=== PATIENT | female | born 1940 | race Caucasian/White ===

== ENCOUNTER 2018-03-11 00:04 | Inpatient (IN) | payer OTHER ==
[2018-03-11] MEDS ORDERED: NS 1,000 ML IV ONE (00:07)
[2018-03-11] MEDS ORDERED: ONDANSETRON 4 MG/2 ML VIAL IVP ONE (00:07)
--- NOTE | 2018-03-11 00:08 | EDPHY ---
H & P Time Seen by Provider: 03/11/18 00:08 HPI/ROS: HPI CHIEF COMPLAINT: Multiple complaints, vomiting, headache, diarrhea, recent UTI HISTORY OF PRESENT ILLNESS: 78-year-old female she presents emergency room by private vehicle with her they are visiting from [place] they just arrived today. They drove from [place] to [place]. She presents emergency room at 12:30 p.m. At night with nausea, vomiting x2 episodes, additionally global headache that started earlier in the day, not sudden onset, additionally watery diarrhea , additionally recent diagnosis of UTI for which she is taking antibiotic for of which she cannot recall the name of. She decided come the emergency room as she has been feeling ill this evening. She states that her headache is gotten worse she vomited twice at worsening diarrhea with some lower abdominal cramping and feels unwell. She thinks it may be from altitude. However they drove here in just arrived in town this evening. She denies any chest pain. Denies shortness of breath. She does report she feels anxious. Past Medical History: Hypertension Past Surgical History: Hysterectomy, tonsillectomy the multiple orthopedic surgeries Social History: lives in [facility], denies drugs, alcohol, tobacco. 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 Family History: Noncontributory ROS REVIEW OF SYSTEMS: 10 Systems were reviewed and negative with the exception of the elements mentioned in the history of present illness. Exam Constitutional nontoxic but appears uncomfortable, triage nursing summary reviewed, vital signs reviewed, awake/alert. Vital signs noted at triage to be hypertensive. Eyes normal conjunctivae and sclera, EOMI, PERRLA. HENT dry mucous membrane comma, normal inspection, atraumatic, moist mucus membranes, no epistaxis, neck supple/ no meningismus, no raccoon eyes. Respiratory clear to auscultation bilaterally, normal breath sounds, no respiratory distress, no wheezing. Cardiovascular rate normal, regular rhythm, no murmur, no edema, distal pulses normal. Gastrointestinal soft, non-tender, no rebound, no guarding, normal bowel sounds, no distension, no pulsatile mass. Genitourinary no CVA tenderness. Musculoskeletal no midline vertebral tenderness, full range of motion, no calf swelling, no tenderness of extremities, no meningismus, good pulses, neurovascularly intact. Skin pink, warm, & dry, no rash, skin atraumatic. Neurologic awake, alert and oriented x 3, AAOx3, moves all 4 extremities equally, motor intact, sensory intact, CN II-XII intact, normal cerebellar, normal vision, normal speech. Psychiatric normal mood/affect. Heme/Lymph/Immune no lymphadenopathy. Differential Diagnosis: Includes but is not limited to in a particular order dehydration, electrolyte disturbance, acute diarrheal illness, urinary tract infection, intracranial bleed, altitude illness, infection, sepsis, acute coronary syndrome Medical Decision Making: Plan for this patient IV establishment with blood draw , check UA, troponin, EKG, CT scan head without contrast, IV fluid bolus, IV Zofran, IV Dilaudid. Re-evaluate. Re-evaluation: CT scan head without contrast negative for acute bleed called to me by Dr. Chen. 0216: I spoke with the hospitalist service Dr. Clement, who agrees to admit this patient. Main reason for admission is nausea, dehydration, low sodium, generalized weakness, diarrhea and headache. Workup is noted to be low sodium 125. This most likely causing her generalized weakness, nausea, lightheadedness. Plan will be for observation overnight. Her urinalysis still pending. She has been recently treated for UTI. Unknown antibiotic at this time. Source: Patient Constitutional: Initial Vital Signs Temperature (C) 36.7 C 03/11/18 00:09 Heart Rate 85 03/11/18 00:09 Respiratory Rate 16 03/11/18 00:09 O2 Sat (%) 95 03/11/18 00:09 O2 Delivery Mode Nasal Cannula O2 (L/minute) 2 Allergies/Adverse Reactions: hydrocodone Allergy (Verified 03/11/18 05:11) Vomiting naproxen [From Aleve] Allergy (Verified 03/11/18 05:11) Hives aleve Allergy (Uncoded 03/11/18 05:11) Hives Home Medications: Medication Instructions Recorded Losartan/Hydrochlorothiazide 1 each PO DAILY 03/11/18 [Losartan-Hctz 100-12.5 mg Tab] Nitrofurantoin Macrocrystal 100 mg PO BID 03/11/18 [Macrodantin 50 mg (*)] Triamcinolone 0.1% [Triamcinolone 1 nicola TP TID PRN 03/11/18 0.1% Cream (*)] Medical Decision Making - Data Points Laboratory Results: Laboratory Results 03/11/18 00:20 03/11/18 00:20 Medications Given: Acetaminophen (Tylenol) 650 mg PO Q4HRS PRN PRN Reason: Pain, Mild/Fever, Can Take PO Stop: 09/07/18 01:58 Last Admin: 03/11/18 16:13 Dose: 650 mg Enoxaparin Sodium (Lovenox) 40 mg SC DAILY JAJA Stop: 09/07/18 08:59 Last Admin: 03/11/18 15:21 Dose: 40 mg Ceftriaxone Sodium/Dextrose (Rocephin 1 Gm (Premix)) 50 mls @ 100 mls/hr IV DAILY JAJA PRN Reason: Protocol Stop: 04/10/18 14:29 Last Admin: 03/11/18 15:15 Dose: 50 mls Ketorolac Tromethamine (Toradol) 15 mg IVP BID PRN PRN Reason: Pain, Breakthrough Stop: 03/16/18 20:59 Last Admin: 03/11/18 20:02 Dose: 15 mg Ondansetron HCl (Zofran) 4 mg IVP Q4HRS PRN PRN Reason: Nausea/Vomiting, Use 1st Stop: 09/07/18 01:58 Last Admin: 03/11/18 11:34 Dose: 4 mg Discontinued Medications Hydromorphone HCl (Dilaudid) 1 mg IVP EDNOW ONE Stop: 03/11/18 00:19 Last Admin: 03/11/18 00:28 Dose: 1 mg Sodium Chloride (Ns) 1,000 mls @ 0 mls/hr IV EDNOW ONE; Wide Open PRN Reason: Protocol Stop: 03/11/18 00:08 Last Admin: 03/11/18 00:27 Dose: 1,000 mls Sodium Chloride (Ns) 1,000 mls @ 75 mls/hr IV CONT JAJA Stop: 09/07/18 01:59 Last Admin: 03/11/18 03:53 Dose: 1,000 mls Magnesium Sulfate/Dextrose (Magnesium Sulf 1 Gm (Premix)) 100 mls @ 100 mls/hr IV ONCE ONE Stop: 03/11/18 07:20 Last Admin: 03/11/18 07:35 Dose: 100 mls Ondansetron HCl (Zofran) 4 mg IVP EDNOW ONE Stop: 03/11/18 00:08 Last Admin: 03/11/18 00:28 Dose: 4 mg Potassium Chloride (Klor-Con) 20 meq PO ONCE ONE Stop: 03/11/18 15:09 Last Admin: 03/11/18 15:16 Dose: 20 meq Departure - Departure Disposition: [facility] Acute Clinical Impression: Generalized weakness, Lightheaded, Hyponatremia Condition: Fair
[2018-03-11] MEDS ORDERED: HYDROmorphONE/DILAUDID 2 MG/ML INJ IVP ONE (00:18)
[2018-03-11 01:17] LABS: PLATELET COUNT 291 10^3/uL (150-400)
[2018-03-11] MEDS ORDERED: diphenhydrAMINE 25 MG CAP PO PRN (01:59)
[2018-03-11] MEDS ORDERED: LORazepam 0.5 MG TAB PO PRN (01:59)
[2018-03-11] MEDS ORDERED: NS 1,000 ML IV SCH (02:00)
--- NOTE | 2018-03-11 04:42 | PDGENHP ---
History and Physical - Chief Complaint nausea/vomiting/diarrhea - History of Present Illness Source - Patient provides history and appears reliable however she is quite fatigued in provides short abbreviated answers to questions.. EMR reviewed and case discussed with ED provider. HPI - Pleasant 78 yo F with pmhx significant for HTN who presents to the ED with c/o nausea/vomiting/diarrhea x 1 day. Patient and her were driving from [place], [place] for conference when patient began to feel ill yesterday afternoon. Patient denies any hematemesis. She reports watery diarrhea but is unsure if there is any melena or hematochezia present. She has noted some abdominal distention and cramping type pain. Patient has not had any watery diarrhea since arrival to the floor. She reports some chills no fevers. She denies any sick contacts. No recent travel out of the country. In the emergency department, patient's initial SBP not listed under vital signs was reported to be 200 per the ED provider. She reports that she has been having some headaches some dizziness and lightheadedness with positional changes. No further nausea or vomiting since arrival to the floor. Patient was recently started on antibiotics which she cannot recall the name of and has completed 2 days of therapy for diagnosis of UTI. Patient reports she was diagnosed on Tuesday (5 days ago). History Information - Allergies/Home Medication List Allergies/Adverse Reactions: hydrocodone Allergy (Verified 03/11/18 05:11) Vomiting naproxen [From Aleve] Allergy (Verified 03/11/18 05:11) Hives aleve Allergy (Uncoded 03/11/18 05:11) Hives I have personally reviewed and updated: family history, medical history, social history, surgical history Past Medical History: Patient reports that she takes Cozaar at home but cannot recall the dosing at this time. She is also on an antibiotic which she does not recall name or dosing. - Past Medical History Additional medical history: HTN. UTI - Surgical History Additional surgical history: Cataract extraction with lens placement - Family History Additional family history: No cardiac disease - Social History Smoking Status: Never smoked Alcohol Use: None Drug Use: None Additional social history: Patient is lives with her attacks or cannot. Cor status-full. Review of Systems Review of Systems: ROS: 10pt was reviewed & negative except for what was stated in HPI & below Constitutional: Reports: chills, recent illness (Symptoms yesterday as noted above in HPI), weakness (Generalized weakness). Denies: fever EENMT: Denies: blurred vision, nose congestion, sore throat Cardiac: Reports: edema (Occasional lower extremity edema), lightheadedness. Denies: chest pain, syncope Respiratory: Reports: no symptoms. Denies: cough, shortness of breath Gastrointestinal: Reports: vomitting, abdominal pain, abdominal distention, diarrhea, nausea. Denies: black stools Genitourinary: Reports: dysuria (Patient reports she had symptoms at the or beginning of the week which have resolved. She has been on antibiotics for 2 days.). Denies: burning, hematuria, urgency Muscolosketal: Reports: no symptoms Skin: Reports: no symptoms Neurological: Reports: no symptoms Hematologic/Lymphatic: Reports: no symptoms Physical Exam Physical Exam: Selected Entries 03/11/18 00:47 Blood Pressure Automatic Method Heart Rate 96 Respiratory 16 Rate O2 Sat (%) 98 Blood Pressure 191/82 H Mean Arterial 118 H Pressure (MAP) O2 (L/minute) 2 O2 Delivery Nasal Cannula Mode Temp Pulse Resp BP Pulse Ox 36.4 C 84 12 196/98 H 96 03/11/18 03:00 03/11/18 03:00 03/11/18 03:00 03/11/18 03:00 03/11/18 03:00 O2 (L/minute) 2 Constitutional: other (NAD. Pleasant adult female is lying quietly in bed. She does appear acutely ill but nontoxic. She keeps her eyes closed majority of the interview no does appear quite fatigued but cooperates as best she can.) Eyes: PERRL (Pupils are slightly asymmetric on the left. Bilateral lens reflexes appreciated.), anicteric sclera, EOMI (Limited secondary to patient's complaint of lightheadedness but no nystagmus is appreciated.), No scleral injection Ears, Nose, Mouth, Throat: no oral mucosal ulcers, dry mucous membranes, other ( No nasal discharge), No poor dentition Cardiovascular: regular rate and rhythym, no murmur, rub, or gallop, pulses symmetric bilaterally, edema (Trace pretibial edema in feet) Peripheral Pulses: 1+: dorsalis-pedis (R), dorsalis-pedis (L) Respiratory: no respiratory distress, no rales or rhonchi, clear to auscultation , No respiratory distress Gastrointestinal: soft, non-tender abdomen (Patient does not appear uncomfortable during the abdominal exam. She has distension. Hypoactive bowel sounds present), no palpable masses, distension, No guarding, No rebound Genitourinary: no bladder tenderness, No king in urethra Skin: warm, normal color, no rashes or abrasions, No rash Musculoskeletal: generalized weakness (Patient moves quite slowly secondary to complaints of significant lightheadedness. She does move all extremities.) Neurologic: AAOx3, other (Grossly nonfocal exam.), No facial droop Psychiatric: thought process linear, flat affect (Patient does not appear to feel well keeps her eyes closed majority of the interview. She is otherwise cooperative and pleasant.) Lab Data & Imaging Review 03/11/18 00:20 03/11/18 00:20 WBC 5.36 10^3/uL (3.80-9.50) 03/11/18 00:20 RBC 4.69 10^6/uL (4.18-5.33) 03/11/18 00:20 Hgb 13.9 g/dL (12.6-16.3) 03/11/18 00:20 Hct 39.9 % (38.0-47.0) 03/11/18 00:20 MCV 85.1 fL (81.5-99.8) 03/11/18 00:20 MCH 29.6 pg (27.9-34.1) 03/11/18 00:20 MCHC 34.8 g/dL (32.4-36.7) 03/11/18 00:20 RDW 12.4 % (11.5-15.2) 03/11/18 00:20 Plt Count 291 10^3/uL (150-400) 03/11/18 00:20 MPV 9.5 fL (8.7-11.7) 03/11/18 00:20 Neut % (Auto) 74.0 % (39.3-74.2) 03/11/18 00:20 Lymph % (Auto) 17.5 % (15.0-45.0) 03/11/18 00:20 [place] % (Auto) 5.8 % (4.5-13.0) 03/11/18 00:20 Eos % (Auto) 1.7 % (0.6-7.6) 03/11/18 00:20 Baso % (Auto) 0.4 % (0.3-1.7) 03/11/18 00:20 Nucleat RBC Rel Count 0.0 % (0.0-0.2) 03/11/18 00:20 Absolute Neuts (auto) 3.97 10^3/uL (1.70-6.50) 03/11/18 00:20 Absolute Lymphs (auto) 0.94 10^3/uL (1.00-3.00) L 03/11/18 00:20 Absolute Monos (auto) 0.31 10^3/uL (0.30-0.80) 03/11/18 00:20 Absolute Eos (auto) 0.09 10^3/uL (0.03-0.40) 03/11/18 00:20 Absolute Basos (auto) 0.02 10^3/uL (0.02-0.10) 03/11/18 00:20 Absolute Nucleated RBC 0.00 10^3/uL (0-0.01) 03/11/18 00:20 Immature Gran % 0.6 % (0.0-1.1) 03/11/18 00:20 Immature Gran # 0.03 10^3/uL (0.00-0.10) 03/11/18 00:20 VBG Lactic Acid 1.6 mmol/L (0.7-2.1) 03/11/18 00:20 Sodium 125 mEq/L (135-145) L 03/11/18 00:20 Potassium 3.5 mEq/L (3.3-5.0) 03/11/18 00:20 Chloride 85 mEq/L (97-110) L 03/11/18 00:20 Carbon Dioxide 25 mEq/l (22-31) 03/11/18 00:20 Anion Gap 15 mEq/L (8-16) 03/11/18 00:20 BUN 16 mg/dL (7-23) 03/11/18 00:20 Creatinine 0.8 mg/dL (0.6-1.0) 03/11/18 00:20 Estimated GFR > 60 03/11/18 00:20 Glucose 117 mg/dL (70-100) H 03/11/18 00:20 Calcium 9.5 mg/dL (8.5-10.4) 03/11/18 00:20 Total Bilirubin 0.6 mg/dL (0.1-1.4) 03/11/18 00:20 Conjugated Bilirubin 0.1 mg/dL (0.0-0.5) 03/11/18 00:20 Unconjugated Bilirubin 0.5 mg/dL (0.0-1.1) 03/11/18 00:20 AST 37 IU/L (14-46) 03/11/18 00:20 ALT 32 IU/L (9-52) 03/11/18 00:20 Alkaline Phosphatase 74 IU/L (38-126) 03/11/18 00:20 Troponin I < 0.012 ng/mL (0.000-0.034) 03/11/18 00:20 Total Protein 7.6 g/dL (6.3-8.2) 03/11/18 00:20 Albumin 4.7 g/dL (3.5-5.0) 03/11/18 00:20 Lipase 215 IU/L (23-300) 03/11/18 00:20 Urine Color YELLOW 03/11/18 02:46 Urine Appearance CLEAR 03/11/18 02:46 Urine pH 7.0 (5.0-7.5) 03/11/18 02:46 Ur Specific [place] 1.010 (1.002-1.030) 03/11/18 02:46 Urine Protein NEGATIVE (NEGATIVE) 03/11/18 02:46 Urine Ketones 1+ (NEGATIVE) H 03/11/18 02:46 Urine Blood NEGATIVE (NEGATIVE) 03/11/18 02:46 Urine Nitrate NEGATIVE (NEGATIVE) 03/11/18 02:46 Urine Bilirubin NEGATIVE (NEGATIVE) 03/11/18 02:46 Urine Urobilinogen NEGATIVE EU (0.2-1.0) 03/11/18 02:46 Ur Leukocyte Esterase NEGATIVE (NEGATIVE) 03/11/18 02:46 Urine Glucose NEGATIVE (NEGATIVE) 03/11/18 02:46 Imaging Review: CT head without contrast-image and preliminary report reviewed negative for any acute findings. Visualized and Interpreted EKG results: Yes EKG additional interpertation: NSR in the 60s. No acute ST elevations or depressions. LAE. QTC is 473. Assessment & Plan Assessment: Pleasant 78-year-old female traveling from [place] with her who presents with acute onset of nausea vomiting and diarrhea for 1 day. #Hyponatremia with associated hypochloremia - likely secondary to hypovolemia in setting of acute onset nausea vomiting diarrhea. Believe this is acute change and likely contributing to some of patient's generalized weakness. Continue with IV fluid hydration and monitor sodiums. #Nausea vomiting diarrhea - symptoms currently controlled. Patient has not had any additional episodes since arrival to the floor. Zofran will be available p.r.n.. Patient is afebrile without leukocytosis likely a viral type syndrome. Continue with supportive care. Patient has been on antibiotics for few days but do not suspect a C diff at this time. #Generalized weakness (Acute) - likely multifactorial but primarily due to dehydration, hyponatremia and acute illness. Will IV hydrate as noted below. #Lightheaded (Acute) - patient does appear dehydrated likely some component of hypovolemia. At this time she is not able to sit up or stand a due to her lightheadedness or do not feel it is safe to do orthostatics at this time. Will plan to continue to hydrate by IV and advance diet as tolerated. Up with assistance as needed. # benign essential hypertension-patient with some elevated blood pressures but also at this time she is nauseous and lightheaded. Blood pressures repeated on the floor repeat systolic blood pressure is 175. She does take Cozaar normally daily but does not recall the dose. Her renal function is appropriate so would consider restarting this once med rec is updated and available. FEN - IV fluids with normal saline at this time. Again I believe this is an acute hyponatremia so correction will be monitored but not controlled strictly. Electrolytes including magnesium will be monitored replaced if needed. Advance diet as tolerated. PPX-SCDs. Lovenox if patient should stay additional day. Cor status-full Disposition-patient admitted to observation status on the medical floor PCU overflow at this time. Hopefully patient symptoms will improve with supportive care and IV fluid hydration and can be discharged shortly.
[2018-03-11] MEDS ORDERED: MAGNESIUM SULF 1 GM/DEXTROSE 100 ML IV ONE (06:21)
--- NOTE | 2018-03-11 07:22 | CPEKG ---
Test Reason : OPEN Blood Pressure : / mmHG Vent. Rate : 065 BPM Atrial Rate : 065 BPM P-R Int : 197 ms QRS Dur : 103 ms QT Int : 454 ms P-R-T Axes : 083 036 034 degrees QTc Int : 473 ms Sinus rhythm Probable left atrial enlargement Confirmed by Imtiaz Akins ([id number]) on 03/11/2018 7:21:54 AM Referred By: Confirmed By:Imtiaz Akins
[2018-03-11] MEDS: ONDANSETRON 4 MG/2 ML VIAL IVP PRN ×2 (07:35→11:34)
[2018-03-11] MEDS: ACETAMINOPHEN 325 MG TAB PO PRN ×2 (11:32→16:13)
[2018-03-11] MEDS ORDERED: TRIAMCINOLONE 0.1% 15 GM CRTUBE TP PRN (11:51)
[2018-03-11] MEDS ORDERED: hydrALAZINE 20 MG/ML VIAL IVP PRN (12:00)
--- NOTE | 2018-03-11 12:01 | HOSPPROG ---
Hospitalist Progress Note Assessment/Plan: #Hypovolemic hyponatremia: multifactorial with HCTZ, vomiting, diarrhea. Adding on urine studies. -Ensure supplements #Diarrhea: may be from Macrobid vs food poisoning. Wouldn't suspect C diff so soon, but will check if continues #Recent UTI: did not complete full-course Macrobid, will not continue with likely side effects. Dose with CTX #HTN: resume Losartan only, hold HCTZ #Diet: regular with supplemental shakes #Disp: cont inpatient admission for IVFs, serial labs Time spent on visit: 30 min bedside evaluating pt, reviewing medications (9:15-9 :45) Subjective: feels terrrible. Abd pain from vomiting Objective: Vital Signs Temp Pulse Resp BP Pulse Ox 36.8 C 60 14 165/73 H 92 03/11/18 07:48 03/11/18 07:48 03/11/18 07:48 03/11/18 07:48 03/11/18 07:48 Laboratory Results 03/11/18 10:04 03/10/18 03/11/18 03/12/18 05:59 05:59 05:59 Intake Total 1300 Balance 1300 - Time Spent With Patient Time Spent with Patient: greater than 35 minutes Time Spent with Patient: Greater than 35 minutes spent on this patients care, greater than 50% of time spent counseling, educating, and coordinating care regarding the above mentioned plan. - Physical Exam Constitutional: other (ill-appearing) Eyes: PERRL Ears, Nose, Mouth, Throat: dry mucous membranes Cardiovascular: regular rate and rhythym, no murmur, rub, or gallop Respiratory: no respiratory distress Gastrointestinal: normoactive bowel sounds Genitourinary: no bladder fullness Skin: warm Musculoskeletal: generalized weakness Neurologic: AAOx3, CN II-XII Intact Psychiatric: interacting appropriately ICD10 Worksheet Patient Problems: Problems Problem Status Onset Generalized weakness Acute Hyponatremia Acute Lightheaded Acute
--- NOTE | 2018-03-11 12:17 | ASMTCMCOM ---
CM Note CM Note Notes: 03/11/2018 Case Management note Discussed pt during rounds this morning. Pt admitted for dehydration, diarrhea, low Na, STACY and a possible UTI. Pt unable to participate in PT this morning d/t nausea. Met w/pt. STEFANO signed. GREG Lolis in the rooo. Lolis lives in [place] and can be reached at [phone]. Corbin [phone] is at the hotel resting today. Pt plans to return to [place] once she is feeling better. There are no case management d/c needs identified at this time. Case Mangement d/c poc: to be determined, anticipating independent. Case Management to follow. Date Signed: 03/11/2018 12:16 PM Electronically Signed By:Nan Schumacher RN
[2018-03-11] MEDS ORDERED: POTASSIUM CL 20 MEQ TAB PO ONE (15:08)
[2018-03-11] MEDS: ENOXAPARIN 40 MG/0.4 ML SYR SC SCH (15:21)
[2018-03-11] MEDS: KETOROLAC 15 MG/1 ML SDV IVP PRN (20:02)
[2018-03-12] MEDS: KETOROLAC 15 MG/1 ML SDV IVP PRN (06:28)
[2018-03-12 08:32] VITALS: BP 165/69
[2018-03-12] MEDS: ENOXAPARIN 40 MG/0.4 ML SYR SC SCH (08:42)
--- NOTE | 2018-03-12 12:25 | ASMTDCNOTE ---
Case Management Discharge Discharge Order Complete? Answers: No Patient to Obtain Answers: Independently Medications Transportation Arranged Answers: Family/Friends Family Notified Answers: Yes Notes: in room Discharge Comments Notes: 03/12/2018 Case Management note Pt left AMA. Plans to start drive home with to [place]. There were no case management d/c needs identified. Date Signed: 03/12/2018 12:25 PM Electronically Signed By:Nan Schumacher RN
--- NOTE | 2018-03-12 12:26 | ASMTLACE ---
LACE Length of stay for Answers: Less than 1 day current admission Acuity / Level of Answers: No Care: Did the patient have an inpatient admission? Comorbidities - select Answers: Other Notes: HTN, UTI all that apply # of Emergency department Answers: 1-2 visits in the last 6 months Score: 2 Date Signed: 03/12/2018 12:25 PM Electronically Signed By:Nan Schumacher RN
--- NOTE | 2018-03-12 13:33 | PDMN ---
Medical Necessity Medical necessity: Change to IP, as of 03/11/18, per MD; los >2 mn for ongoing management of hypovolemic hyponatremia (Na 123) w/vomiting & diarrhea; requiring further monitoring, follow-up labs & IVFs; hx recent UTI-did not complete full-course abx
--- NOTE | 2018-03-12 15:08 | GDS ---
DISCHARGE DIAGNOSES: 1. Hyponatremia. 2. Nausea, vomiting. 3. Recent urinary tract infection. 4. Hypertension. HISTORY OF PRESENT ILLNESS: A 78-year-old female with hypertension on losartan/hydrochlorothiazide, presented to the ER complaining of nausea, vomiting, and diarrhea for 1 day. She has been recently s tarted on antibiotics for a UTI. She and her were driving from [place] for a conference when s he began to feel ill. She reported watery diarrhea and some abdominal distention. She has had decre ased p.o. intake with some fevers and chills. No ill contacts. HOSPITAL COURSE BY PROBLEM: 1. Hyponatremia: Multifactorial with diarrhea, vomiting, hydrochlorothiazide, and decreased p.o. in take. Sodium was 125 at admission. She received IV fluids and it dropped to 123. 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 Thus, she was fluid restricted. Sodium improved today to 124 . After a long discussion, the patient did not want to stay in the hospital. I advised her the risk s given that she is driving home to [place] could include seizures, coma, . was at [facility] and was in agreement and said he will be doing all the driving. Did advise her to continue liter f luid restriction and hold hydrochlorothiazide. My plan today was to add salt tablets. Encourage her to drink protein shakes and solute intake. 2. Recent UTI: Macrobid likely caused some of her symptoms of nausea, vomiting. She was dosed ceft riaxone here. Thus she has received an appropriate number of antibiotics including orals prior to ar rival. 3. Hypertension. Advised her to hold hydrochlorothiazide until labs rechecked. DISPOSITION: Patient left AMA. She had clear medical decisional capacity, who could explain the ris ks, including seizures, coma, or . Her plan is to stop at a hospital on the way if she were to feel poorly. MEDICATIONS: Hold hydrochlorothiazide. FOLLOWUP: Her primary care physician. PHYSICAL EXAMINATION: VITAL SIGNS: Temperature 36.8. Blood pressure is 165/69. Heart rate is in t he 60s. GENERAL: She is well appearing, much different than yesterday. She is walking the unit wit hout issue. HEENT: PERRLA. Moist mucous membranes. CV: Regular rate and rhythm. LUNGS: Clear. ABDOMEN: Soft, nontender, and nondistended. Positive bowel sounds. : No [place]. MUSCULOSKELETA L: 5/5 upper and lower extremity strength. She is sitting up and ambulating without issue. NEURO: 2-12 intact. PSYCH: Alert and oriented x3. TIME SPENT ON DISCHARGE: Greater than 30 minutes counseling patient and on risks of leaving AMA, but did provide a close followup plan and fluid restriction plan. /[id number]/MODL
== END 2018-03-12 12:26 | disposition left against medical advice (07) | DRG 641 ==
LOC: F2W 02:54 → OBSVTOIN 12:04
PROVIDERS: ADMIT Family Medicine; ATTEND Family Medicine
DX: E87.1 Hypo-osmolality and hyponatremia (principal); N39.0 Urinary tract infection, site not specified; E86.0 Dehydration; I10 Essential (primary) hypertension; E86.1 Hypovolemia
CPT/HCPCS: 84481-90; J0696; J1170; J1650; J1885; J2405; J3475